=== PATIENT | female | born 1990 | race Caucasian/White ===

== ENCOUNTER 2017-12-08 14:26 | Emergency (ER) | payer SELFPAY ==
[2017-12-08 14:58] VITALS: BP 120/51
[2017-12-08] MEDS ORDERED: Ibuprofen TAB* 600 MG PO ONE (15:10)
--- NOTE | 2017-12-08 15:10 | UC ---
Lower Extremity/Ankle HPI - HPI Summary HPI Summary: pt is c/o pain to her outside R foot. it began yesterday while at work. no acute injury. thinks swollen. dx tendinitis in past - History of Current Complaint Chief Complaint: UCLowerExtremity Stated Complaint: WC-RT FOOT INJURY Time Seen by Provider: 12/08/17 14:58 Hx Obtained From: Patient Hx Last Menstrual Period: 12/06/17 Onset/Duration: Gradual Onset Pain Intensity: 5 Aggravating Factor(s): Standing, Ambulation Alleviating Factor(s): Rest Able to Bear Weight: Yes - Risk Factors Septic Arthritis Risk Factor: Negative - Allergies/Home Medications Allergies/Adverse Reactions: Allergies Allergy/AdvReac Type Severity Reaction Status Date / Time No Known Allergies Allergy Verified 12/08/17 14:59 PMH/Surg Hx/FS Hx/Imm Hx Previously Healthy: Yes - Surgical History Surgical History: Yes Surgery Procedure, Year, and Place: Tonsils, ganglian cyst on L wrist. gallbladder - Family History Known Family History: Positive: Diabetes - Social History Occupation: Employed Full-time Lives: With Family Alcohol Use: Occasionally Substance Use Type: None Smoking Status (MU): Never Smoked Tobacco - Immunization History Vaccination Up to Date: Yes Review of Systems Constitutional: Negative Skin: Negative Eyes: Negative ENT: Negative Respiratory: Negative Cardiovascular: Negative Gastrointestinal: Negative Genitourinary: Negative Motor: Negative Neurovascular: Negative Musculoskeletal: Other: - R foot pain Neurological: Negative Psychological: Negative Is Patient Immunocompromised?: No All Other Systems Reviewed And Are Negative: Yes Physical Exam Triage Information Reviewed: Yes Appearance: Well-Appearing Vital Signs: Initial Vital Signs Temp 98.3 F 12/08/17 14:49 Pulse 72 12/08/17 14:49 Resp 16 12/08/17 14:49 BP 120/51 12/08/17 14:49 Pulse Ox 100 12/08/17 14:49 Vital Signs Reviewed: Yes Eyes: Positive: Conjunctiva Clear ENT: Positive: Normal ENT inspection Neck: Positive: Supple, Nontender, No Lymphadenopathy Respiratory: Positive: Lungs clear, Normal breath sounds Cardiovascular: Positive: RRR, No Murmur Abdomen Description: Positive: Nontender, No Organomegaly, Soft Bowel Sounds: Positive: Present Musculoskeletal: Positive: Other: - RLE: No gross deformity, swelling or discoloration. tender over 4th/5th metatarsals. rest of foot is non tender. s/v/ m intact to RLE. Neurological: Positive: Alert Psychological: Positive: Age Appropriate Behavior Skin Exam: Normal Diagnostics - Radiology No standard instances Radiology Interpretation Completed By: Radiologist - lucency base 5th metatarsal most c/w fx(see full report) Lower Extremity Course/Dx - Course Course Of Treatment: no concern for infection or FB. + fx on xray - Differential Dx/Diagnosis Provider Diagnoses: fracture R 5th metatarsal-non displaced Discharge - Sign-Out/Discharge Documenting (check all that apply): Discharge/Admit/Transfer - Discharge Plan Condition: Stable Disposition: HOME Patient Education Materials: Foot Fracture in Adults (ED) Forms: *Work Release Referrals: Jemima Nesbitt MD [Primary Care Provider] - If Needed Serafin Deleon MD [Medical Doctor] - As Soon As Possible Additional Instructions: WEAR THE [place] AND POST OP SHOE UNTIL CLEARED. - Billing Disposition and Condition Condition: STABLE Disposition: HOME
--- NOTE | 2017-12-08 15:48 | RAD ---
Indication: Pain along the base of the fifth metatarsal and top of the foot. Pain began yesterday without known injury. Comparison: July 15, 2014 Technique: AP, lateral, and oblique views RIGHT foot. REPORT AND IMPRESSION: Cortical and trabecular linear lucency most consistent with a nondisplaced fracture given the clinical context noted at the proximal metaphysis of the fifth metatarsal with overlying soft tissue swelling. No additional fracture or articular malalignment. Chronic accessory ossicle or sequela of previous avulsion fracture inferior to the lateral malleolus.
== END 2017-12-08 16:07 | disposition home or self-care (01) ==
LOC: UCCORT 14:26
DX: S92.354A Nondisplaced fracture of fifth metatarsal bone, right foot, initial encounter for closed fracture (principal); X58.XXXA Exposure to other specified factors, initial encounter; Y92.9 Unspecified place or not applicable; Z83.3 Family history of diabetes mellitus
CPT/HCPCS: 99203; A9270-GY; G0463

== ENCOUNTER 2018-10-28 10:25 | Emergency (ER) | payer OTHER ==
--- OUTSIDE RECORDS SUMMARY | 2018-10-28 10:41 | XMS REPORT | Continuity of Care Document ---
:1990 External Reference #:[id number] Author Name Randell Hooper Care Team Providers Name Role Phone Jemima Nesbitt MD Primary Care Physician Unavailable Payers Date Identification Numbers Payment Provider Subscriber Effective: 2011 Policy Number: [id number] [facility] [employer] Number: [id number] [address] [address] PayID: [id number] MICHELLE Freire [address] Onset: 2017 Policy Number: [id number] [employer] Group Name: [address] PayID: [id number] [place] [address] Advance Directives Description No Information Available Problems Description No Information Family History Date Family Member(s) Observation Comments Father Diabetes Father Heart Disease Father Hypertension Father Stroke Mother Diabetes Mother maernal grandmother-breast cancer,heart disease Social History Type Date Description Comments Sex Unknown Marital Status Single Lives With Son 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 ETOH Use Occasionally consumes alcohol Tobacco Use Start: Unknown Patient has never smoked Recreational Drug Use Denies Drug Use Smoking Status Reviewed: 10/27/18 Patient has never smoked Exercise Type/Frequency Exercises sporadically walking Allergies, Adverse Reactions, Alerts Description No Known Drug Allergies Medications Active Medications SIG Qnty Indications Ordering Provider Date Mirena (52 MG) implant Unknown 20mcg/24HR IUD Ibuprofen 3 tabs by mouth Unknown 200mg Tablets as needed Esomeprazole Magnesium 1 by mouth every Unknown day as needed Capsules DR Cardoso take 1 tablet by Unknown Tablets mouth daily as needed History Medications Aspirin Ec Low Dose 1 by mouth every day Unknown - 09/14/[address] Santos Description No Information Available Vital Signs Date Vital Result Comment 10/27/2018 9:00am Heart Rate 82 /min BP Systolic Sitting 108 mmHg BP Diastolic Sitting 88 mmHg Respiratory Rate 20 /min Pain Level 4 O2 % BldC Oximetry 98 % 09/15/2018 9:12am Height 61 inches 5'1" Heart Rate 84 /min BP Systolic Sitting 114 mmHg BP Diastolic Sitting 84 mmHg Respiratory Rate 16 /min Pain Level 5 08/11/2018 9:02am Height 61 inches 5'1" Heart Rate 72 /min BP Systolic Sitting 96 mmHg BP Diastolic Sitting 68 mmHg Respiratory Rate 20 /min Pain Level 3 07/14/2018 10:10am Height 61 inches 5'1" Heart Rate 74 /min BP Systolic Sitting 108 mmHg BP Diastolic Sitting 82 mmHg Respiratory Rate 20 /min Pain Level 3 O2 % BldC Oximetry 98 % 06/09/2018 11:26am Height 61 inches 5'1" Weight 218.00 lb BP Systolic Sitting 126 mmHg BP Diastolic Sitting 70 mmHg Respiratory Rate 16 /min Pain Level 2 BMI (Body Mass Index) 41.2 kg/m2 04/28/2018 11:23am Height 61 inches 5'1" Weight 218.00 lb BP Systolic Sitting 126 mmHg BP Diastolic Sitting 68 mmHg Respiratory Rate 17 /min Pain Level 2 BMI (Body Mass Index) 41.2 kg/m2 04/07/2018 2:12pm Height 61 inches 5'1" Weight 218.00 lb BP Systolic Sitting 110 mmHg BP Diastolic Sitting 74 mmHg Respiratory Rate 17 /min Pain Level 0 walking 01/19 BMI (Body Mass Index) 41.2 kg/m2 03/29/2018 11:26am Height 61 inches 5'1" Weight 218.00 lb BP Systolic Sitting 106 mmHg BP Diastolic Sitting 64 mmHg Respiratory Rate 16 /min Pain Level 5 when sitting, walking 9 BMI (Body Mass Index) 41.2 kg/m2 02/08/2018 8:59am Height 61 inches 5'1" Weight 218.00 lb BP Systolic Sitting 112 mmHg BP Diastolic Sitting 64 mmHg Respiratory Rate 16 /min Pain Level 3 BMI (Body Mass Index) 41.2 kg/m2 01/11/2018 9:04am Height 61 inches 5'1" Weight 218.00 lb Heart Rate 66 /min BP Systolic Sitting 118 mmHg BP Diastolic Sitting 76 mmHg Respiratory Rate 18 /min Pain Level 0 BMI (Body Mass Index) 41.2 kg/m2 12/09/2017 11:09am Height 61 inches 5'1" Weight 218.00 lb Heart Rate 80 /min BP Systolic 110 mmHg BP Diastolic 82 mmHg Respiratory Rate 20 /min Pain Level 6 BMI (Body Mass Index) 41.2 kg/m2 Results Description No Information Available Procedures Date Code Description Status 03/29/2018 43713 Rad Exam; Foot Comp Completed 02/08/2018 24385 Rad Exam; Foot Comp Completed 01/11/2018 22793 Rad Exam; Foot Comp Completed 12/09/2017 74375 FX Metatarsal Care Completed 12/09/2017 51159 FX Metatarsal Care Completed 05/12/2012 87383 Nerve Conduction, Sensory Completed 05/12/2012 14577 Nerve Conduction, Motor W/F-Wave Study Completed 05/12/2012 53671 Nerve Conduction, Motor W/O F-Wave Study Completed 05/12/2012 41074 Needle Electromyography Complete, Five Or More Muscles Completed Studied Encounters Type Date Location Provider Dx Diagnosis Office Visit 09/15/2018 Orthopedic Mamadou Infante S92.354D Nondisp fx of 5th 9:15a Services Of [employer] AT M.D. metatarsal bone, [place] r ft, 7thD G60.0 Hereditary motor and sensory neuropathy Office Visit 08/11/2018 9:30a Orthopedic Mamadou S92.354D Nondisp fx of Services Of Elvi Infante M.D. 5th metatarsal AT [place] bone, r ft, 7thD Office Visit 07/14/2018 10:15a Orthopedic Mamadou S92.354D Nondisp fx of Services Of Elvi Infante M.D. 5th metatarsal AT [place] bone, r ft, 7thD Office Visit 06/09/2018 11:30a Orthopedic Mamadou S92.354D Nondisp fx of Services Of Elvi Infante M.D. 5th metatarsal AT [place] bone, r ft, 7thD G60.0 Hereditary motor and sensory neuropathy Office Visit 04/28/2018 11:15a Orthopedic Mamadou [id number] Nondisp fx of Services Of Elvi Infante M.D. 5th metatarsal AT [place] bone, r ft, 7thD M76.71 Peroneal tendinitis, right leg Office Visit 04/07/2018 2:00p Orthopedic Mamadou [id number] Nondisp fx of Services Of Elvi Infante M.D. 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 at [facility] [address] AT [place]
--- NOTE | 2018-10-28 10:45 | UC ---
Throat Pain/Nasal Daryl HPI - HPI Summary HPI Summary: 28 -year-old female with sore throat and left earache over the past 2 days. She has no other symptoms. - History of Current Complaint Stated Complaint: ST Time Seen by Provider: 10/28/18 10:42 Hx Obtained From: Patient Hx Last Menstrual Period: 12/06/17 ?: No Onset/Duration: Gradual Onset Severity: Mild Cough: None Associated Signs & Symptoms: Positive: Negative - Epiglottits Risk Factors Epiglottis Risk Factors: Negative - Allergies/Home Medications Allergies/Adverse Reactions: Allergies Allergy/AdvReac Type Severity Reaction Status Date / Time No Known Allergies Allergy Verified 10/28/18 10:45 Home Medications: Home Medications Esomeprazole Magnesium [Nexium] 10 mg PO DAILY 10/28/18 [History Confirmed 10/28] Ibuprofen 600 mg PO ONCE PRN 10/28/18 [History Confirmed 10/28/18] Multivitamin [Once Daily] 1 each PO DAILY 10/28/18 [History Confirmed 10/28/18] PMH/Surg Hx/FS Hx/Imm Hx Previously Healthy: Yes - Surgical History Surgical History: Yes Surgery Procedure, Year, and Place: Tonsils, ganglian cyst on L wrist. gallbladder - Family History Known Family History: Positive: Diabetes - Social History Alcohol Use: Occasionally Substance Use Type: None Smoking Status (MU): Never Smoked Tobacco - Immunization History Vaccination Up to Date: Yes Review of Systems All Other Systems Reviewed And Are Negative: Yes ENT: Positive: Sore Throat, Ear Ache - Left Earache Is Patient Immunocompromised?: No Physical Exam Triage Information Reviewed: Yes Appearance: Well-Appearing, No Pain Distress, Well-Nourished Vital Signs Reviewed: Yes Eye Exam: Normal ENT: Positive: Hearing grossly normal, Pharynx normal, TM red - Right tympanic membrane is pearly-rocha with good land painting and light reflex, left tympanic membrane is erythematous with moderate landmarks and light reflex., Uvula midline. Negative: Tonsillar swelling, Tonsillar exudate, Trismus, Muffled voice, Hoarse voice Neck exam: Normal Respiratory Exam: Normal Cardiovascular Exam: Normal Musculoskeletal Exam: Normal Neurological Exam: Normal Psychological Exam: Normal Skin Exam: Normal Throat Pain/Nasal Course/Dx - Course Course Of Treatment: She is comfortable here. Her throat exam was normal but she does appear to have a left otitis media which I'm going to treat. She is to follow-up with primary care provider in 4-5 days no improvement. - Differential Dx/Diagnosis Provider Diagnosis: Otitis media Discharge - Sign-Out/Discharge Documenting (check all that apply): Patient Departure All imaging exams completed and their final reports reviewed: No Studies - Discharge Plan Condition: Good Disposition: HOME Prescriptions: Amoxicillin PO (*) [Amoxicillin 875 MG (*)] 875 mg PO BID 10 Days #20 tab Patient Education Materials: Ear Infection (ED) Referrals: Jemima Nesbitt MD [Primary Care Provider] - Additional Instructions: Increase fluids, may take Tylenol every 4 hours or Motrin every 8 hours for pain. Take the antibiotic twice a day for 10 days. Follow up with her primary care provider if no improvement in 4 or 5 days. - Billing Disposition and Condition Condition: GOOD Disposition: Home
[2018-10-28 10:47] VITALS: BP 123/64
== END 2018-10-28 10:55 | disposition home or self-care (01) ==
LOC: UCCORT 10:25
DX: H66.92 Otitis media, unspecified, left ear (principal)
CPT/HCPCS: 99212; G0463